=== PATIENT | female | born 1980 | race Caucasian/White ===

== ENCOUNTER 2017-11-30 21:22 | Emergency (ER) | payer MEDICAID ==
[~2017-11-30] VITALS: Ht 165.1 cm; Wt 58.0 kg
[2017-11-30 21:29] VITALS: Ht 165.1 cm; Wt 58.0 kg
[2017-11-30 23:17] LABS: PLATELET COUNT 171 x10^3mcL (130-400); RED CELL DISTRIBUTION WIDTH 12.4 % (11.5-14.5)
[2017-11-30 23:18] LABS: CARBON DIOXIDE 23.6 mmol/L (21-32); CHLORIDE SERUM 106 mmol/L (98-107); GFR1 > 60 mL/min; GLUCOSE SERUM 123 mg/dL (74-106); POTASSIUM SERUM 3.9 mmol/L (3.5-5.1); SODIUM SERUM 140 mmol/L (136-145)
[2017-11-30 23:19] LABS: BASOPHIL % 0 % (0-2)
[2017-11-30 23:28] LABS: UA SPECIFIC GRAVITY 1.015 (1.005-1.035); microscopic required? YES; urine erythrocyte NEGATIVE (NEGATIVE)
[2017-11-30 23:31] LABS: ALKALINE PHOSPHATASE 70 U/L (46-116); ALT/SGPT 15 U/L (14-59); AST/SGOT 13 U/L (15-37); BILIRUBIN TOTAL 0.3 mg/dL (0.20-1.00); FREE T4 1.03 ng/dL (0.76-1.46); LIPASE 82 IU/L (73-393); TOTAL PROTEIN, SERUM 6.4 g/dL (6.4-8.2)
[2017-11-30 23:36] LABS: AMPHETAMINE QUAL UR NONE DETECTED (NEG <=1000)
[2017-11-30 23:45] LABS: HCG SERUM QUALITATIVE NEGATIVE; HCG SERUM QUANTITATIVE 0 mIU/mL
[2017-12-01 05:22] VITALS: BP 99/64
== END 2017-12-01 05:23 | disposition home or self-care (01) ==
LOC: ED 21:22
PROVIDERS: Emergency Medicine
DX: E83.51 Hypocalcemia (principal); R55 Syncope and collapse
CPT/HCPCS: 84439; J0610; J3490; J7030; Q0092; Q9967